=== PATIENT | female | born 1995 | race Caucasian/White ===

== ENCOUNTER 2017-02-05 08:33 | Emergency (ER) | payer OTHER ==
[2017-02-05 10:56] LABS: HEMOGLOBIN 12.7 gm/dl (12.3-15.3); RED BLOOD COUNT 4.42 M/UL (4.00-5.10); WHITE BLOOD COUNT 3.9 K/UL (4.5-11.0)
[2017-02-05 11:21] LABS: BUN/CREATININE RATIO 13 (0-10)
== END 2017-02-05 14:10 | disposition home or self-care (01) ==
LOC: ER1 08:33
PROVIDERS: Emergency Medicine
DX: R10.32 Left lower quadrant pain (principal); D70.9 Neutropenia, unspecified; D69.6 Thrombocytopenia, unspecified; R19.7 Diarrhea, unspecified
CPT/HCPCS: 36415; 80053; 81001; 83690; 84703; 85025; 96374; 96375; 99284; J2270; J2405; J7030; J7050; Q9962